=== PATIENT | female | born 1965 | race Two or more races ===

== ENCOUNTER 2024-02-16 10:58 | Outpatient (CLI) | payer OTHER | END 2024-02-16 11:08 | disposition home or self-care (01) | LOC: RAD 10:58 | PROVIDERS: ATTEND Orthopaedic Surgery | DX: M79.671 Pain in right foot (principal) ==

== ENCOUNTER 2024-03-23 12:21 | Outpatient (CLI) | payer OTHER | END 2024-03-23 12:23 | disposition home or self-care (01) | LOC: RAD 12:21 | PROVIDERS: ATTEND Orthopaedic Surgery | DX: M79.671 Pain in right foot (principal) ==